=== PATIENT | female | born 1980 | race African-American/Black ===

== ENCOUNTER 2018-09-24 14:50 | Emergency (ER) | payer SELFPAY ==
[2018-09-24 14:53] VITALS: BP 141/66; Wt 90.9 kg
[2018-09-24] MEDS ORDERED: ALBUTEROL SULF8.5 GM INH (15:54)
[2018-09-24] MEDS ORDERED: GLUCOPHAGE500 MG PO (15:54)
[2018-09-24] MEDS ORDERED: AMOXICILLIN500 M1 PO (15:54)
[2018-09-24] MEDS ORDERED: HYDRALAZINE HCL25 MG PO (15:57)
== END 2018-09-24 16:30 | disposition home or self-care (01) ==
LOC: D.ER 14:50
DX: J06.9 Acute upper respiratory infection, unspecified (principal); F41.9 Anxiety disorder, unspecified; Z76.0 Encounter for issue of repeat prescription